=== PATIENT | male | born 1970 | race Caucasian/White ===

== ENCOUNTER 2023-03-20 06:00 | Day surgery (SDC) | payer BC ==
[2023-03-17 16:11] LABS: Absolute Lymphocytes (CBC) 2.5 K/uL (0.7-4.9); Hematocrit 41.5 % (39.6-49.0); MCV 93.4 fL (80-100); MPV 8.8 fL (7.6-11.3); RBC Red Blood Cell Count 4.44 M/uL (4.33-5.43)
[2023-03-17 16:38] LABS: Potassium 4.1 mEq/L (3.5-5.1)
--- NOTE | 2023-03-17 16:39 | RAD REPORT ---
EXAM DESCRIPTION: Matilda Saleh (2 Views)03/17/2023 4:17 pm CLINICAL HISTORY: Preop shoulder surgery. Hypertension COMPARISON: None FINDINGS: The lungs appear clear of acute infiltrate. The heart is normal size IMPRESSION: No acute abnormalities displayed
[2023-03-17 17:07] LABS: Protime INR 0.94
--- NOTE | 2023-03-18 15:59 | EKG ---
Test Date: 2023-03-17 Test Time: 15:43:43 Drive Away Driver: ADOLFO MEASUREMENT RESULTS: Intervals: Rate: 70 CT: 130 QRSD: 108 QT: 384 QTc: 414 [place]: P: 29 CT: 130 QRS: -12 T: 64 INTERPRETIVE STATEMENTS: Normal sinus rhythm Minimal voltage criteria for LVH, may be normal variant ST abnormality, possible digitalis effect Abnormal ECG No previous ECG available for comparison Electronically Signed On 03-18-23 15:57:26 CDT by Derrick Bray
[2023-03-20] MEDS ORDERED: CEFAZOLIN SODIUM 1 GM/VIAL ONE ×2 (06:28→08:42)
[2023-03-20] MEDS ORDERED: Ringers Lactate 1,000 ML IV ONE ×2 (06:28→10:16)
[2023-03-20] MEDS ORDERED: FENTANYL CITR 100 MCG/2 ML ONE (07:09)
[2023-03-20] MEDS ORDERED: dexAMETHasone 10 MG/ML VIAL ONE ×2 (07:09→07:57)
[2023-03-20] MEDS ORDERED: MIDAZOLAM HCL 2 MG/2 ML INJ ONE (07:09)
[2023-03-20] MEDS ORDERED: EPINEPHRINE/PF 1 MG/ML AMP ONE ×2 (07:09→07:55)
[2023-03-20] MEDS ORDERED: LIDOCAINE 1% MPF 5 ML VIAL ONE (07:09)
[2023-03-20] MEDS ORDERED: ROCURONIUM 50 MG/5 ML VIAL IV ONE (07:57)
[2023-03-20] MEDS ORDERED: propofoL 200 MG/20 ML VIAL IV ONE (07:57)
[2023-03-20] MEDS ORDERED: KETOROLAC 30 MG/ML INJ ONE (07:57)
[2023-03-20] MEDS ORDERED: LIDOCAINE 2% MPF 5 ML VIAL ONE (07:57)
[2023-03-20] MEDS ORDERED: ONDANSETRON 4 MG/2 ML VIAL ONE (07:58)
[2023-03-20] MEDS ORDERED: NS 0.9% VIAL 20 ML ONE ×2 (08:42→09:13)
[2023-03-20] MEDS ORDERED: NS 0.9% VIAL 10 ML ONE (08:46)
[2023-03-20] MEDS ORDERED: GLYCOPYRROLATE 0.2 MG/ML SYR ONE ×2 (09:13→09:58)
[2023-03-20] MEDS ORDERED: Phenylephrine HCl 10 MG/ML 1 ML VIAL ONE (09:13)
[2023-03-20] MEDS ORDERED: NEOSTIGMINE 1 MG/ML -10 ML VIAL ONE (09:58)
[2023-03-20 10:24] VITALS: TEMP 96.9
--- NOTE | 2023-03-20 10:39 | P.BOP ---
Preoperative diagnosis: left shoulder rotator cuff tear, SLAP tear, impingement syndrome Postoperative diagnosis: left shoulder arthroscopic rotator cuff debridement Primary procedure: left shoulder open subpectoral biceps tenodesis Secondary procedure: left shoulder arthroscopic subacromial decompression Police Service Technician: NONE,NONE Estimated blood loss: 10 cc Specimen: none Findings: see dictation Anesthesia: General Complications: None Implants: 7 mm Arthrex biotenodesis screw Fluids & blood products: per anesthesia record Transferred to: Recovery Room Condition: Good
--- NOTE | 2023-03-20 11:01 | RAD REPORT ---
EXAM DESCRIPTION: RAD - Shoulder 1 View - 03/20/2023 10:51 am CLINICAL HISTORY: S/P L RC DENNIS, SAD, BICEPS TENDOESIS COMPARISON: Shoulder Left Wo Cont dated 02/24/2023 FINDINGS/IMPRESSION: No acute fracture. No malalignment. Mild left AC joint degenerative changes.
[2023-03-20 12:32] VITALS: BP 117/65; O2SAT 95
--- NOTE | 2023-03-24 06:00 | OP ---
Date of Procedure: 03/20/2023 Surgeon: Rikki Owens MD Preoperative Diagnoses: 1.Left shoulder rotator cuff tear. 2.Left shoulder SLAP tear. 3.Left shoulder impingement syndrome. Postoperative Diagnoses: Procedures Performed: 1.Left shoulder arthroscopic rotator cuff debridement. 2.Left shoulder open subpectoral biceps tenodesis. 3.Left shoulder arthroscopic subacromial decompression. Anesthesia: General endotracheal. Fluids: Per Anesthesia record. Ebl: 10 mL. Complications: None. Implants: 7 mm Arthrex biotenodesis screw. Indication For Procedure: Susie is a 52-year-old male who presents to clinic with signs, symptoms, an d MRI findings consistent with a left shoulder SLAP tear, bicipital tenosynovitis and a partial-thick ness rotator cuff tear. I discussed with the patient at length risks, benefits associated with opera tive and nonoperative treatment. He expressed understanding and elected to proceed with operative tr eatment. Description Of Procedure: After informed consent was obtained, the patient was identified in preoper ative holding area. The left upper extremity was marked. The patient was then brought back to the P ACU where he underwent an interscalene block by Anesthesia to the left upper extremity. He was then brought back to the operating room, transferred to the operating table in supine fashion, placed unde r general endotracheal anesthesia. He was then placed in the beach chair position with extremities w ell-padded. The left upper extremity was then prepped and draped in usual sterile fashion. A time-o ut was initiated. The correct patient and procedure were confirmed and identified. The patient did receive his preoperative prophylactic antibiotics. A spinal needle was introduced into the glenohume ral joint via the posterior portal position and the shoulder was injected with 30 mL of normal saline to distend the capsule. The posterior portal was created and an arthroscope was brought in via the posterior portal position and diagnostic arthroscopy was performed under direct visualization. An an terior portal and cannula were placed. Diagnostic arthroscopy was then performed. The patient was n oted to have a type 2 SLAP tear with significant fraying of the superior labrum as well as significan t fraying of the biceps tendon anchor. The patient was noted to also have a partial tear of the supe rior border of the subscapularis. The subscapularis was found to be overall intact and this was debr ided using arthroscopic shaver under direct visualization. The anterior-posterior labrum was stable to probe. There were no loose bodies in the axillary pouch. There was some mild chondromalacia villarreal ges noted of the glenoid surface and humeral head. A biceps tenotomy was then performed using a meni scal biter at the anchor site and there was no significant instability noted of the shoulder joint. The superior labrum was then also debrided using arthroscopic shaver. The undersurface of the supras pinatus and infraspinatus was found to be intact and stable to probe. The arthroscope was then broug ht to the subacromial space and a subacromial bursectomy was performed. The patient had significant hyperemia and inflammation at the tendon insertion of the supraspinatus anteriorly as well as the inf raspinatus. There under direct visualization and creation of a lateral portal, the supraspinatus and infraspinatus were probed using an obturator as well as a probe. There were no significant tears. A subacromial bursectomy was performed. There was some fraying of the undersurface of the coracoacro mial ligament and using a radiofrequency ablator and arthroscopic bur, an acromioplasty was performed . This completed the subacromial decompression. The arthroscopic instruments were then removed with out complication. Next, attention was taken to open subpectoral biceps tenodesis. Approximately, a 3 cm longitudinal incision was made just medial to the pec insertion. Dissection was then taken out of the fascia, which was opened up in line with the incision using blunt dissection as long head eduardo ps tendon was encountered and brought out through the incision 3 cm distal to the myotendinous juncti on, it was marked. The remaining tendon was then cut and the biceps tendon was then whipstitched usi ng a FiberLoop. The bicipital groove was then identified and debrided. A guide pin was then introdu mary and a unicortical tunnel was placed using an 8 mm reamer. The biceps tendon was then brought int o the tunnel. Again with a 7 mm biotenodesis screw, biceps tenodesis was performed. The suture limb s were then tied over the implant and there was good overall stability and fixation of the biceps ten don within the tunnel. The remaining suture limbs were then cut. Wounds were then irrigated thoroug hly with normal saline. Subcutaneous tissue was approximated using a 2-0 Vicryl. Skin and portals w ere approximated using a 4-0 Monocryl. Sterile dressings were applied. The patient was awakened and placed in a shoulder immobilizer and transferred to PACU in stable condition. Postoperative Plan: The patient will be nonweightbearing on his upper extremity. He will follow up next week for wound check. He will begin physical therapy for post-tenodesis protocol in 2 weeks pos top. CV/MODL Voice ID: [id number] Report ID: [id number]
== END 2023-03-20 11:48 | disposition home or self-care (01) ==
LOC: OR 06:00
PROVIDERS: ATTEND Orthopaedic Surgery Sports Medicine
PROC: 0LS40ZZ Reposition Left Upper Arm Tendon, Open Approach (ICD-10-PCS; 2023-03-20)
PROC: 0RNK4ZZ Release Left Shoulder Joint, Percutaneous Endoscopic Approach (ICD-10-PCS; principal; 2023-03-20 08:00)
DX: S43.432A Superior glenoid labrum lesion of left shoulder, initial encounter (principal); M75.122 Complete rotator cuff tear or rupture of left shoulder, not specified as traumatic; M75.22 Bicipital tendinitis, left shoulder
CPT/HCPCS: 93005; 85025; 80048; 36415; 85610; 85730; 71046; 73020; 29822; 29826; 23430; A4216 ×3; J2704; J2710; J0171 ×2; J2001 ×2; J2370; J2250; J3010; J1100 ×2; J2405; J7120 ×2; J0690 ×2